=== PATIENT | female | born 1955 | race Caucasian/White ===

== ENCOUNTER 2017-10-09 23:42 | Inpatient (IN) | payer BC, OTHER ==
[~2017-10-09] VITALS: Ht 152.4 cm; Wt 41.3 kg
[~2017-10-09 23:42] MED LIST: ALBU90AE; CALC-469; CELE-85; CHOL100043; DESO15OI; DOCU100C36 PO; MOME17SP; MONT10TA25 PO; PANT40TA2 PO; PRAV10TA40 PO; VALS160T2
--- NOTE | 2017-10-10 00:18 | NUR ---
PT BIB [facility] FOR ANGE PSYCH ADMISSION. PATIENT IS ON 5150. PATIENT IS A/OX4, DENIES ANY SUICIDAL IDEATION AT THIS TIME.
--- NOTE | 2017-10-10 00:40 | NUR ---
DR. ROSS AT BEDSIDE FOR MSE.
--- NOTE | 2017-10-10 01:15 | NUR ---
Pt. admitted to [facility] , under care of Dr. CHANG Belongs List completed BY PRIMARY NURSE SANDRA GARCÍA
[2017-10-10] MEDS ORDERED: MAGNESIUM HYDROXIDE 30 ML LIQUID UDC PO PRN (01:30)
[2017-10-10] MEDS ORDERED: ACETAMINOPHEN 325 MG TABLET PO PRN (01:30)
[2017-10-10 01:45] VITALS: BP 140/69
[2017-10-10 01:51] VITALS: BP 140/69
--- NOTE | 2017-10-10 02:00 | NUR ---
AT APPROX 0145, ADMITTED 61 YEAR OLD FEMALE TO [facility] ON A 5150 HOLD FOR DTS. PER HOLD, ON 10/07/2017 PATIENT OD ON 180 PILLS OF ATIVAN 0.5MG PO. (PATIENT LIVES AT HOME BY HERSELF) SHE WAS THEN TAKEN TO [facility] IN [place] AND SHE WAS ADMITTED TO THE MED/SURG UNIT. ON 10/09/17 PATIENT WAS MEDICALLY CLEARED FOR ADMISSION TO [facility]. HOLD STARTED ON 10/09/17 AT 2200 AND WILL END ON 10/12/17 AT 2200. UPON INTERVIEW, PT DENIES SI/HI. SHE WAS ABLE TO CFS. SHE STATED THAT HER MEDICATIONS (ZOLOFT AND THEN REMERON) MADE HER FEELINGS SUICIDAL AND ANXIOUS. PATIENT NOTED A/O X 4, SHE IS ABLE TO MAKE HER NEEDS KNOW, ABLE TO AMBULATE WITH STEADY GAIT. AT TIME OF ADMISSION PT IS CALM AND COOPERATIVE WITH ADMISSION PROCESS. SKIN NOTED WARM MOIST AND INTACT EXCEPT FOR REDNESS IN LEFT ANTECUBITAL ARM D/T IV THERAPY. VITAL SIGNS STABLE AT THIS TIME. PATIENT WILL BE UNDER THE CARE OF DR CHANG AND DR ARROYO. WILL CONTINUE TO MONITOR.
[2017-10-10 05:13] LABS: *BILIRUBIN,URIN NEGATIVE (NEGATIVE); *BLOOD, URINE NEGATIVE (NEGATIVE); *CLARITY,URINE CLEAR (CLEAR); *COLOR,URINE YELLOW (YELLOW); *KETONES,URINE NEGATIVE (NEGATIVE); *PROTEIN,URINE NEGATIVE (NEGATIVE); *UROBILINOGEN,URINE 0.2 E.U./dl (NORMAL); LEUKOCYTE ESTERASE ,URINE NEGATIVE (NEGATIVE); NITRITE, URINE NEGATIVE (NEGATIVE); UGLUCOSE NEGATIVE (NEGATIVE)
[2017-10-10 05:20] LABS: BACTERIA,URINE FEW /HPF (NONE SEEN); RBC,URINE NONE SEEN /HPF (0-3); SQUAMOUS EPITHELIAL CELL,UR FEW /HPF (NONE SEEN)
[2017-10-10 07:50] VITALS: BP 128/80
[2017-10-10] MEDS ORDERED: ALBUTEROL SULFATE 8 GM HFA.AER.AD IH PRN (11:00)
[2017-10-10] MEDS ORDERED: ALBUTEROL SULFATE 2.5 MG/3 ML NEBU NEB PRN (11:00)
--- NOTE | 2017-10-10 11:01 | NUR ---
Firearms Report: Boil Off Worker completed and submitted [employer] Firearms Report on 10/10/17.
[2017-10-10] MEDS: PANTOPRAZOLE SODIUM 40 MG TABLET.DR PO SCH ×2 (11:30→16:29)
--- NOTE | 2017-10-10 11:30 | NUR ---
Gps/Artist Representative- Per patient she is allergic to remeron , make her swells up on her face, added to her allergies.
--- NOTE | 2017-10-10 14:07 | NUR ---
Initial Discharge Instructions: Patient currently resides at home alone [[address], [place] [address]; [phone]]. Per pt, she would like to return there when ready for discharge. SW will speak with pt, family (Solange [phone]) and MD regarding appropriate discharge plan for this patient. SW will form a safe and proper discharge plan.
--- NOTE | 2017-10-10 15:40 | NUR ---
Gps/Mid Teacher-Continue to monitor patient for safety, encouraged to continue to verbalized feelings and needs, encouraged participation in her group therapy. Able to contract for safety,denies S.I.
[2017-10-10 15:48] VITALS: BP 127/67
--- NOTE | 2017-10-10 16:04 | NUR ---
UR Note: Received call from [facility] Alyse. Authorization#[id number] for 4 days (October 09-) with review on October 13, 2017. Alyse call back # [phone]. SW will follow-up.
[2017-10-10] MEDS: DULOXETINE 30 MG CAPSULE.DR PO SCH (16:29)
[2017-10-10] MEDS: DOCUSATE SODIUM 100 MG CAPSULE PO SCH (16:54)
--- NOTE | 2017-10-10 17:00 | NUR ---
Gps/It Systems Analyst Consultant- Friends from [place] came by and brought clothes for patient to use. Patient does not want her clothes to be put away iin the patient's locker , informed patient staff not reponsible for her clothes, ipt. verbalized understanding.
--- NOTE | 2017-10-10 17:47 | NUR ---
Gps/Fire Fighters Dispatcher- patient complained of having dizziness, anxious. B/P 139/72, HR 74, )2 sat 100% resp.18, no resp. distress. Encouraged to stay in bed if feeling dizziness, claimed had couple of loose stools today, denies any nausea, ofered, lemon [place] soda, refused.Continue to monitor complaints, safety emphasized.
[2017-10-10 20:00] VITALS: BP 122/83
[2017-10-10] MEDS: MONTELUKAST SODIUM 10 MG TABLET PO SCH (20:35)
--- NOTE | 2017-10-10 20:37 | NUR ---
gps: held debra patel 2 tabs po due to patient stated i am having loose stool.
[2017-10-10] MEDS ORDERED: DOCUSATE SODIUM 100 MG CAPSULE PO SCH (21:00)
[2017-10-10] MEDS ORDERED: SENNOSIDES 1 TABLET PO SCH (21:00)
[2017-10-11] MEDS: PANTOPRAZOLE SODIUM 40 MG TABLET.DR PO SCH ×3 (06:34→16:00)
--- NOTE | 2017-10-11 06:35 | NUR ---
GPS: REMAIN CALM AND COOPERATIVE WITH MEDICATIONS AND CARE. PATIENT CAME OUT OF ROOM ABOUT 2 AM ,STATED I AM NOT FEELING GOOD. V/S TAKEN. B/P 137/73 PULSE 83 RESP 20 TEMP 98.3 SAT 99% IN ROOM AIR. AFTER V/S TAKEN PATIENT STATED I AM OK NOW I AM GOING BACK TO SLEEP. THIS MORNING PATIENT STATED I AM OK NOW. SLEPT 9 HRS THROUGH THE NIGHT. CONTINUE PLAN OF CARE.
[2017-10-11 07:12] LABS: BASOPHILS % (AUTO) 0.6 % (0.0-2.0); EOSINOPHILS # (AUTO) 0.1 K/uL (0.0-0.7); EOSINOPHILS % (AUTO) 1.5 % (0.0-7.0); HEMATOCRIT 32.3 % (31.2-41.9); HEMOGLOBIN 11.2 g/dL (10.9-14.3); LYMPHOCYTES # (AUTO) 1.4 K/uL (20.0-40.0); LYMPHOCYTES % (AUTO) 27.8 % (20.5-51.5); MEAN CORPUSCULAR HEMOGLOBIN 32.5 uug (24.7-32.8); MEAN CORPUSCULAR HGB CONC 35 g/dL (32.3-35.6); MEAN CORPUSCULAR VOLUME 93.8 fL (75.5-95.3); MONOCYTES # (AUTO) 0.5 K/uL (2.0-10.0); MONOCYTES % (AUTO) 9.1 % (0.0-11.0); NEUTROPHILS # (AUTO) 3.1 K/uL (1.8-8.9); PLATELET COUNT (AUTO) 267 K/uL (179-408); RED BLOOD CELL COUNT(AUTO) 3.44 MIL/uL (3.63-4.92); WHITE BLOOD COUNT (AUTO) 5.1 K/uL (3.8-11.8)
[2017-10-11 07:47] LABS: BILIRUBIN,TOTAL 0.3 mg/dL (0.2-1.0); CREATININE 0.7 mg/dL (0.6-1.3); MAGNESIUM 2.4 mg/dL (1.8-2.4); PHOSPHOROUS 3.1 mg/dL (2.5-4.9); POTASSIUM 3.6 mmol/L (3.5-5.1); TOTAL PROTEIN, SERUM 6.3 g/dL (6.4-8.2)
[2017-10-11 07:51] VITALS: BP 113/59
[2017-10-11] MEDS: CELECOXIB 200 MG CAPSULE PO SCH (08:04)
[2017-10-11] MEDS: CHOLECALCIFEROL 1,000 UNIT TABLET PO SCH (08:04)
[2017-10-11] MEDS: CALCIUM CARBONATE 500 MG TAB.CHEW PO SCH (08:04)
[2017-10-11 08:05] LABS: THYROID STIMULATING HORMONE 2.223 mIU/mL (0.358-3.740)
[2017-10-11] MEDS: MOMETASONE FUROATE NASAL 17 GM SPRAY.PUMP NS SCH (08:05)
[2017-10-11] MEDS: DOCUSATE SODIUM 100 MG CAPSULE PO SCH (08:05)
[2017-10-11] MEDS: VALSARTAN 160 MG TABLET PO SCH (08:07)
[2017-10-11] MEDS: LORAZEPAM 0.5 MG TABLET PO PRN (11:34)
--- NOTE | 2017-10-11 14:33 | NUR ---
PT SAID SHE FEELS SHE WANTS TO HIT HER HEAD IN THE WALL OR SHE WANTS TO HANG HER SELF ,SHE DO NOT FEEL GOOD ,PUT THE PT TO CLOSE OBSERVATION NEAR THE NURSING STATION CHARGE NURSE AND MD MADE AWARE.
[2017-10-11] MEDS: MEGESTROL ACETATE 400 MG/10 ML LIQUID UDC PO SCH (14:37)
[2017-10-11 15:34] VITALS: BP 128/71
[2017-10-11] MEDS: DULOXETINE 30 MG CAPSULE.DR PO SCH (16:00)
--- NOTE | 2017-10-11 16:00 | NUR ---
Continue to monitor patient for safety, encouraged to continue to verbalized feelings and needs, encouraged participation in her group therapy. Able to contract for safety,jeet S.I.
[2017-10-11 20:00] VITALS: BP 125/66
[2017-10-11] MEDS: MONTELUKAST SODIUM 10 MG TABLET PO SCH (20:05)
--- NOTE | 2017-10-11 21:16 | NUR ---
GPS: PATIENT C/O HEADACHE. TYLENOL 650 MG PO GIVEN.
--- NOTE | 2017-10-11 22:17 | NUR ---
gps: patient stated my headache is better now. prn for headache effective.
[2017-10-12] MEDS: PANTOPRAZOLE SODIUM 40 MG TABLET.DR PO SCH ×2 (06:09→06:38)
[2017-10-12] MEDS: LORAZEPAM 0.5 MG TABLET PO PRN ×3 (06:26→20:44)
--- NOTE | 2017-10-12 06:27 | NUR ---
GPS: patient c/o anxiety.ativan 0.5 mg po given. patient remain calm and cooperative most of the night,slept 8 hrs through the night. continue monitoring for safety.
[2017-10-12 08:15] VITALS: BP 119/64
[2017-10-12] MEDS: VALSARTAN 160 MG TABLET PO SCH (08:50)
[2017-10-12] MEDS: CALCIUM CARBONATE 500 MG TAB.CHEW PO SCH (08:50)
[2017-10-12] MEDS: CHOLECALCIFEROL 1,000 UNIT TABLET PO SCH (08:50)
[2017-10-12] MEDS: CELECOXIB 200 MG CAPSULE PO SCH (08:50)
[2017-10-12] MEDS: MEGESTROL ACETATE 400 MG/10 ML LIQUID UDC PO SCH (08:50)
[2017-10-12] MEDS: MOMETASONE FUROATE NASAL 17 GM SPRAY.PUMP NS SCH (08:57)
--- NOTE | 2017-10-12 11:38 | NUR ---
RECEIVED Pt IN BED, SLEEPING BUT EASILY AROUSED, A/O X 3, COOPERATIVE, NOTED ANXIETY, DEPRESSED, FLAT AFFECT. DENIES S/I, COMPLIANT WITH MEDS AND CARE STAFF. Pt COMPLAINED OF NAUSEA THIS MORNING, OFFERED SALTINE CRACKERS AND WATER TO HELP WITH NAUSEA. RE-EVALUATED AFTER, Pt STATES NAUSEA HAS SUBSIDED BUT STILL FEELING ANXIOUS. RELAXATION/BREATHING TECHNIQUE WAS ENCOURAGED BY NURSE, Pt STAYING IN BED TO SLEEP, REFUSING TO ATTEND GROUP ACTIVITIES. WILL CONTINUE TO MONITOR Pt THROUGHOUT THE DAY.
--- NOTE | 2017-10-12 13:36 | NUR ---
Pt NAUSEA HAS SUBSIDED BUT STILL COMPLAINING OF ANXIETY. ASSESSED BY NURSE, Pt STATES 8/10 ANXIETY LEVEL, REQUESTING ATIVAN. WILL ADMINISTER ATIVAN 0.5 MG PO PER ORDER. WILL CONTINUE TO MONITOR Pt ANXIETY.
[2017-10-12 16:22] VITALS: BP 116/59
[2017-10-12] MEDS: DULOXETINE 30 MG CAPSULE.DR PO SCH (16:51)
[2017-10-12 20:00] VITALS: BP 120/61
[2017-10-12] MEDS: MONTELUKAST SODIUM 10 MG TABLET PO SCH (20:43)
[2017-10-13] MEDS: TEMAZEPAM 7.5 MG CAPSULE PO PRN ×2 (01:56→21:02)
[2017-10-13] MEDS: PANTOPRAZOLE SODIUM 40 MG TABLET.DR PO SCH ×2 (06:16→09:00)
[2017-10-13] MEDS: LORAZEPAM 0.5 MG TABLET PO PRN ×3 (06:22→20:12)
[2017-10-13 07:30] VITALS: BP 119/71
[2017-10-13] MEDS ORDERED: PANTOPRAZOLE SODIUM 40 MG TABLET.DR PO SCH (09:00)
--- NOTE | 2017-10-13 09:00 | NUR ---
Received awake in bed , anxious affect, depressed mood, withdrawn and isolative to her room, fair appetite, no interaction with peers. Denies SI/HI, denies hearing voices. Patient states "i just need to rest". Medication compliant and cooperative, no c/o pain noted. Will continue to monitor for safety, needs and behavioral changes.
[2017-10-13] MEDS: VALSARTAN 160 MG TABLET PO SCH (09:13)
[2017-10-13] MEDS: CELECOXIB 200 MG CAPSULE PO SCH (09:13)
[2017-10-13] MEDS: MEGESTROL ACETATE 400 MG/10 ML LIQUID UDC PO SCH (09:13)
[2017-10-13] MEDS: CALCIUM CARBONATE 500 MG TAB.CHEW PO SCH (09:14)
[2017-10-13] MEDS: CHOLECALCIFEROL 1,000 UNIT TABLET PO SCH (09:14)
[2017-10-13] MEDS: MOMETASONE FUROATE NASAL 17 GM SPRAY.PUMP NS SCH (09:57)
--- NOTE | 2017-10-13 11:29 | NUR ---
UR Note: Provided clinical review for [employer]ia Field Marketing Lead Alyse (tel. [phone]). Authorization #[id number]. Authorized for 2 additional days (10/13-10/14) with clinical review on 10/15. Health Underwriter will continue to follow-up.
--- NOTE | 2017-10-13 14:08 | NUR ---
Remains withdrawn and isolative to her room, poor appetite, c/o feeling anxious, patient states "i am worried because i will have surgery, maybe i need to give my urine", ativan 0.5 mg PO was given at 1300, reassessed in an hour, patient more calm, lying in her bed. Encouraged to verbalized feelings and concerns to staff. Will continue to monitor for safety and needs.
[2017-10-13 16:32] LABS: *BILIRUBIN,URIN NEGATIVE (NEGATIVE); *BLOOD, URINE 1+ (NEGATIVE); *CLARITY,URINE CLOUDY (CLEAR); *COLOR,URINE YELLOW (YELLOW); *KETONES,URINE NEGATIVE (NEGATIVE); *PROTEIN,URINE NEGATIVE (NEGATIVE); *UROBILINOGEN,URINE 0.2 E.U./dl (NORMAL); LEUKOCYTE ESTERASE ,URINE NEGATIVE (NEGATIVE); NITRITE, URINE NEGATIVE (NEGATIVE); PH,URINE 7.5 (5.0-8.0); UGLUCOSE NEGATIVE (NEGATIVE)
[2017-10-13 16:37] LABS: BACTERIA,URINE FEW /HPF (NONE SEEN); SQUAMOUS EPITHELIAL CELL,UR FEW /HPF (NONE SEEN); URINE AMORPHOUS PHOSPHATES MA /HPF; WBC,URINE 0-3 /HPF (0-3)
[2017-10-13] MEDS ORDERED: DULOXETINE 30 MG CAPSULE.DR PO SCH (17:00)
[2017-10-13] MEDS: DULOXETINE 60 MG CAPSULE.DR PO SCH (17:13)
--- NOTE | 2017-10-13 17:42 | NUR ---
Urine sent for urinalysis and urine culture.
[2017-10-13] MEDS: MONTELUKAST SODIUM 10 MG TABLET PO SCH (20:12)
[2017-10-13 20:41] VITALS: BP 122/65
--- NOTE | 2017-10-14 05:58 | NUR ---
Pt C/O 04/15 CRAMPING ABD PAIN, C/O "FULLNESS AND NAUSEA", REPORTS THAT SHE IS HAVING A DIVERTICULITIS "FLARE UP". Pt STATES SHE HAS NOT HAD A BM IN 3 DAYS, ALTHOUGH PER THE I/O CHARTING, Pt HAD A BM ON 10/13, AND 5 BMs ON 10/11. Pt STATES THAT SHE FEELS LIKE SHE IS GOING TO "PASS OUT". Pt REFUSED MOM, AND VS ARE CURRENTLY 131/76, 80, 98.8. JASMEET BARBA NOTIFIED OF SITUATION, STAT KUB ORDERED. RADIOLOGY NOTIFIED, ETA 30 MINUTES. Pt PLACED BACK IN BED AT THIS TIME, WILL CONTINUE TO MONITOR CLOSELY.
[2017-10-14] MEDS: PANTOPRAZOLE SODIUM 40 MG TABLET.DR PO SCH (06:29)
--- NOTE | 2017-10-14 06:38 | NUR ---
CALLED RADIOLOGY FOR ETA, NO ANSWER AT THIS TIME.
--- NOTE | 2017-10-14 06:41 | NUR ---
COMPUTER SYSTEMS TECHNICIAN HERE HOW, WITH Pt.
[2017-10-14 07:30] VITALS: BP 106/43
[2017-10-14] MEDS ORDERED: LACTULOSE 20 G/30 ML LIQUID UDC PO ONE (08:15)
[2017-10-14] MEDS ORDERED: FLEET ENEMA 133 ML BOTTLE RC ONE (08:15)
[2017-10-14] MEDS: VALSARTAN 160 MG TABLET PO SCH (09:00)
[2017-10-14] MEDS: MOMETASONE FUROATE NASAL 17 GM SPRAY.PUMP NS SCH (09:00)
[2017-10-14] MEDS: CELECOXIB 200 MG CAPSULE PO SCH (09:00)
[2017-10-14] MEDS: CALCIUM CARBONATE 500 MG TAB.CHEW PO SCH (09:12)
[2017-10-14] MEDS: CHOLECALCIFEROL 1,000 UNIT TABLET PO SCH (10:18)
[2017-10-14] MEDS: MEGESTROL ACETATE 400 MG/10 ML LIQUID UDC PO SCH (10:18)
[2017-10-14] MEDS ORDERED: IV NS 1000 ML 1,000 ML IV ONE ×2 (12:45→18:37)
[2017-10-14] MEDS ORDERED: DIPHENOXYLATE HCL/ATROP SULF TABLET PO PRN (14:30)
[2017-10-14] MEDS ORDERED: IV NS 1000 ML 1,000 ML IV SCH (14:45)
--- NOTE | 2017-10-14 15:06 | NUR ---
0800 Called Chapito SPAIN regarding abnormal KUB result, spoke with Chapito SPAIN with orders carried out.0841 Fleets enema per rectum and ministered and lactulose 40G po given. 0920 Patient use the restroom ,had a bowel movement and passing lots of gas and same time periods of burping. Patient relieved from abdominal pain . Encouraged to eat and increased oral fluids as tolerated. Patient frequently use the restroom with loss to liquid stools.1245 Patient had total 10x liquid stools after given lactulose po and fleets enema adm. Patient become weak and shaky. V/S taken B/p 117/73 HR-78 T-98 R-18 h5unh-78%. 1300 Called [facility] SPAIN regarding frequent watery bowel movement( 10x) with order carried out. Collected stool and send to lab for stool culture and stool for c-diff. 1305 Inserted IV line on left wrist and start IV NS 1L bolus started, patent and infusing well.1400 Patient still having watery bm 5x and IV NS bolus almost completed.1415 Chapito SPAIN notified patient still having watery bm and still weak. 1429 Martha SPAIN returned call with orders to continue IVF as ordered and prn lomotil ordered.1449 #2 IVF NS 1 L @ 125ml/hr infusing well and prn lomotil given as ordered.Will continue to monitor patient episodes of water bm.
[2017-10-14 15:20] VITALS: BP 168/83
[2017-10-14] MEDS: DULOXETINE 60 MG CAPSULE.DR PO SCH (16:55)
[2017-10-14 19:38] VITALS: BP 130/57
[2017-10-14] MEDS: LORAZEPAM 0.5 MG TABLET PO PRN (20:38)
[2017-10-14] MEDS: MONTELUKAST SODIUM 10 MG TABLET PO SCH (21:23)
--- NOTE | 2017-10-15 06:25 | NUR ---
Patient slept 6 hours. No behavioral issues noted. Cooperative. Med compliant. IV hep lock on the left wrist # 20 patent and intact. Patient states "she feels much better". Vital signs stable. Bed was kept in low and locked position. Safety and comfort measures maintained t/o shift.
[2017-10-15] MEDS: PANTOPRAZOLE SODIUM 40 MG TABLET.DR PO SCH (06:38)
[2017-10-15 07:30] VITALS: BP 148/62
[2017-10-15] MEDS: CALCIUM CARBONATE 500 MG TAB.CHEW PO SCH (08:11)
[2017-10-15] MEDS: CELECOXIB 200 MG CAPSULE PO SCH (08:11)
[2017-10-15] MEDS: VALSARTAN 160 MG TABLET PO SCH (08:12)
[2017-10-15] MEDS: CHOLECALCIFEROL 1,000 UNIT TABLET PO SCH (08:12)
[2017-10-15] MEDS: MEGESTROL ACETATE 400 MG/10 ML LIQUID UDC PO SCH (08:12)
[2017-10-15] MEDS: MOMETASONE FUROATE NASAL 17 GM SPRAY.PUMP NS SCH (08:14)
--- NOTE | 2017-10-15 14:03 | NUR ---
UR Note: Provided clinical review for Alicia Cbx Operator Alyse (tel. [phone]). Authorization #[id number]. Authorized for 2 additional days (10/15-10/16) with clinical review on 10/17. Route Delivery Clerk will continue to follow-up.
[2017-10-15 14:39] VITALS: BP 132/66
[2017-10-15] MEDS: DULOXETINE 60 MG CAPSULE.DR PO SCH (16:42)
[2017-10-15] MEDS: MONTELUKAST SODIUM 10 MG TABLET PO SCH (20:19)
[2017-10-15] MEDS: MAG HYDROX/AL HYDROX/SIMETH 30 ML LIQUID UDC PO PRN (20:28)
[2017-10-15 21:38] VITALS: BP 154/81
--- NOTE | 2017-10-15 22:00 | NUR ---
received to care, lying in bed, pleasant upon approach. denies SI, or desire to harm self. compliant with medications, and staff direction. as of 2199, she appears to be asleep. no distress noted. will continue to monitor closely.
[2017-10-16] MEDS: MAG HYDROX/AL HYDROX/SIMETH 30 ML LIQUID UDC PO PRN (02:53)
[2017-10-16] MEDS: LORAZEPAM 0.5 MG TABLET PO PRN (03:46)
--- NOTE | 2017-10-16 03:46 | NUR ---
PRN ativan, given for anxiety.
--- NOTE | 2017-10-16 04:10 | NUR ---
appears to be asleep. no distress noted.
--- NOTE | 2017-10-16 06:00 | NUR ---
slept 8.0 hours, total. continues to sleep. no distress noted.
[2017-10-16] MEDS: PANTOPRAZOLE SODIUM 40 MG TABLET.DR PO SCH (06:44)
[2017-10-16 07:30] VITALS: BP 125/76
[2017-10-16] MEDS: CELECOXIB 200 MG CAPSULE PO SCH (08:18)
[2017-10-16] MEDS: MOMETASONE FUROATE NASAL 17 GM SPRAY.PUMP NS SCH (08:18)
[2017-10-16] MEDS: MEGESTROL ACETATE 400 MG/10 ML LIQUID UDC PO SCH (08:18)
[2017-10-16] MEDS: CHOLECALCIFEROL 1,000 UNIT TABLET PO SCH (08:18)
[2017-10-16 08:19] VITALS: BP 125/76
[2017-10-16] MEDS: VALSARTAN 160 MG TABLET PO SCH (08:19)
[2017-10-16] MEDS: CALCIUM CARBONATE 500 MG TAB.CHEW PO SCH (08:19)
--- NOTE | 2017-10-16 11:07 | NUR ---
Discharge Note: Patient will be discharged back home [[address], [place] [address]; [phone]] via [facility] transport. Spoke with Tommie at [facility] ([phone]) who have agreed to provide transportation and will picking crew supervisor the patient today between 2 and 3pm. Spoke with patient's sister, Solange Leslie ([phone]) who is aware and agreeable with discharge plans. Patient is aware and agreeable with discharge plans. Patient will continue to follow-up with her Primary Care Physician, Dr. Alfredo Fontaine [[address] [place] [address]; [phone]]. Patient was also given referrals for outpatient in-network Psychiatrists, including Dr. Ben Begum [[address], [address] [place], [place]; [phone]]; Dr. Tariq Love [[address] [place] [address]; [phone]]; and Dr. Bulmaro Roth [[address] [place] [address]; [phone]]. Patient was given referrals for outpatient psychotherapists including MINA Chang [[address], [address] [place] [address]; [phone]]. Patient was given information for Behavioral Case Management through [facility] ( ). Patient was also given outpatient mental health resources for [facility] Line , Elissa Stephenson , and the National Suicide Prevention Lifeline .
--- NOTE | 2017-10-16 15:07 | NUR ---
Gps/Folding Machine Operator- Reviewed medications/prescriptions,diet, safety, nutrition,skin care, F/U with her PMD as well as Psychiatrist recommended, pt. verbalized understanding. All belongings return , given back to patient. No complaints noted, pt. in good spirit. Discharged via [employer] transportation .
== END 2017-10-16 15:20 | disposition home or self-care (01) | DRG 885 ==
LOC: ER 23:45 → GPS 10-10 01:23
PROVIDERS: ADMIT Psychiatry & Neurology Psychiatry; ATTEND Internal Medicine
DX: F33.2 Major depressive disorder, recurrent severe without psychotic features (principal); M32.9 Systemic lupus erythematosus, unspecified; E44.0 Moderate protein-calorie malnutrition; K57.92 Diverticulitis of intestine, part unspecified, without perforation or abscess without bleeding; K86.1 Other chronic pancreatitis; Z68.1 Body mass index [BMI] 19.9 or less, adult; K59.09 Other constipation; Z87.440 Personal history of urinary (tract) infections; L30.9 Dermatitis, unspecified; G89.29 Other chronic pain; T42.4X2D Poisoning by benzodiazepines, intentional self-harm, subsequent encounter; E78.5 Hyperlipidemia, unspecified; Z90.710 Acquired absence of both cervix and uterus; H81.09 Meniere's disease, unspecified ear; F41.9 Anxiety disorder, unspecified; I10 Essential (primary) hypertension; Z85.038 Personal history of other malignant neoplasm of large intestine
CPT/HCPCS: 36415; 74018; 83735; 84100; 84443; 85025; 86625; 87046; 87086; A4663; J3535; J7030; J8999